=== PATIENT | female | born 1955 | race Caucasian/White ===

== ENCOUNTER → 2016-10-03 | Outpatient (CLI) | payer OTHER ==
--- NOTE | 2016-10-03 15:29 | RADIOLOGY REPORT (SQ) ---
EXAM DESCRIPTION: CHEST PA/LAT COMPLETED DATE/TIME: 10/03/2016 3:16 pm REASON FOR STUDY: HX OF PULMONARY SCARRING COMPARISON: 02/16/2015 EXAM PARAMETERS: NUMBER OF VIEWS: two views TECHNIQUE: Digital Frontal and Lateral radiographic views of the chest acquired. RADIATION DOSE: NA LIMITATIONS: none FINDINGS: LUNGS AND PLEURA: No opacities, masses or pneumothorax. No pleural effusion. MEDIASTINUM AND HILAR STRUCTURES: No masses or contour abnormalities. HEART AND VASCULAR STRUCTURES: Heart normal size. No evidence for failure. BONES: No acute findings. HARDWARE: None in the chest. OTHER: No other significant finding. IMPRESSION: NO SIGNIFICANT RADIOGRAPHIC FINDING IN THE CHEST. TECHNICAL DOCUMENTATION: JOB ID: [id number] [employer]- All Rights Reserved
== END ==
LOC: RAD 15:05
DX: J84.10 Pulmonary fibrosis, unspecified (principal)
CPT/HCPCS: 71020

== ENCOUNTER → 2017-07-09 | Outpatient (CLI) | payer OTHER ==
[2017-07-09 11:36] LABS: ABSOLUTE BASOPHILS # (AUTO) 0.1 10^3/uL (0.0-0.2); ABSOLUTE EOSINOPHILS # (AUTO) 0.2 10^3/uL (0.0-0.6); ABSOLUTE LYMPHOCYTES (AUTO) 1.8 10^3/uL (0.5-4.7); ABSOLUTE MONOCYTES (AUTO) 0.5 10^3/uL (0.1-1.4); ABSOLUTE NEUT (AUTO) 3.3 10^3/uL (1.7-8.2); BASOPHILS % (AUTO) 0.9 % (0-2); EOSINOPHILS % (AUTO) 3.6 % (0-6); HEMATOCRIT 42.6 % (36.0-47.0); HEMOGLOBIN 14.1 g/dL (12.0-15.5); LYMPHOCYTES % (AUTO) 30.7 % (13-45); MEAN CORPUSCULAR HEMOGLOBIN 26.3 pg (27.0-33.4); MEAN CORPUSCULAR HGB CONC 33.1 g/dL (32.0-36.0); MEAN CORPUSCULAR VOLUME 80 fl (80-97); MONOCYTES % (AUTO) 9.1 % (3-13); PLATELET COUNT 346 10^3/uL (150-450); RED BLOOD COUNT 5.35 10^6/uL (3.72-5.28); RED CELL DISTRIBUTION WIDTH 14.3 % (11.5-14.0); SEGMENTED NEUTROPHILS % (AUTO) 55.7 % (42-78); TOTAL CELLS COUNTED % (AUTO) 100 %; WHITE BLOOD COUNT 5.9 10^3/uL (4.0-10.5)
[2017-07-09 11:53] LABS: ALANINE AMINOTRANSFERASE 43 U/L (9-52); ALBUMIN 4.1 g/dL (3.5-5.0); ALKALINE PHOSPHATASE 74 U/L (38-126); AMYLASE 42 U/L (30-110); ANION GAP 9 (5-19); ASPARTATE AMINO TRANSFERASE 27 U/L (14-36); BILIRUBIN,DIRECT 0.1 mg/dL (0.0-0.4); BILIRUBIN,TOTAL 0.3 mg/dL (0.2-1.3); BLOOD UREA NITROGEN 13 mg/dL (7-20); CALCIUM 9.7 mg/dL (8.4-10.2); CARBON DIOXIDE 33 mmol/L (22-30); CHLORIDE 99 mmol/L (98-107); GLUCOSE 110 mg/dL (75-110); SODIUM 140.8 mmol/L (137-145)
[2017-07-10 08:41] LABS: THYROXINE (T4) 8.4 ug/dL (4.5-12.0)
[2017-07-10 10:33] LABS: FREE THYROXINE INDEX 2.3 (1.2-4.9)
== END ==
LOC: CCC 10:49
DX: I10 Essential (primary) hypertension (principal); E03.9 Hypothyroidism, unspecified; R19.7 Diarrhea, unspecified
CPT/HCPCS: 36415; 80053; 82150; 83036; 84436; 84443; 84479; 85025; 87493; 89055

== ENCOUNTER → 2018-12-23 | Outpatient (CLI) | payer OTHER ==
[2018-12-23 09:53] LABS: ABSOLUTE BASOPHILS # (AUTO) 0.1 10^3/uL (0.0-0.2); ABSOLUTE EOSINOPHILS # (AUTO) 0.2 10^3/uL (0.0-0.6); ABSOLUTE LYMPHOCYTES (AUTO) 1.8 10^3/uL (0.5-4.7); ABSOLUTE MONOCYTES (AUTO) 0.6 10^3/uL (0.1-1.4); ABSOLUTE NEUT (AUTO) 4.7 10^3/uL (1.7-8.2); BASOPHILS % (AUTO) 0.7 % (0-2); HEMATOCRIT 39.9 % (36.0-47.0); HEMOGLOBIN 13.4 g/dL (12.0-15.5); LYMPHOCYTES % (AUTO) 24.2 % (13-45); MEAN CORPUSCULAR HGB CONC 33.7 g/dL (32.0-36.0); MEAN CORPUSCULAR VOLUME 80 fl (80-97); MONOCYTES % (AUTO) 8.3 % (3-13); PLATELET COUNT 367 10^3/uL (150-450); RED BLOOD COUNT 4.97 10^6/uL (3.72-5.28); RED CELL DISTRIBUTION WIDTH 14.6 % (11.5-14.0); SEGMENTED NEUTROPHILS % (AUTO) 63.8 % (42-78); TOTAL CELLS COUNTED % (AUTO) 100 %; WHITE BLOOD COUNT 7.4 10^3/uL (4.0-10.5)
[2018-12-23 10:13] LABS: ALBUMIN 4.1 g/dL (3.5-5.0); ALKALINE PHOSPHATASE 74 U/L (38-126); ANION GAP 10 (5-19); ASPARTATE AMINO TRANSFERASE 22 U/L (14-36); BILIRUBIN,DIRECT 0.1 mg/dL (0.0-0.4); BILIRUBIN,TOTAL 0.3 mg/dL (0.2-1.3); BLOOD UREA NITROGEN 13 mg/dL (7-20); CALCIUM 9.7 mg/dL (8.4-10.2); CARBON DIOXIDE 28 mmol/L (22-30); CHLORIDE 102 mmol/L (98-107); CHOLESTEROL 173.47 mg/dL (0-200); CREATINE KINASE 62 U/L (30-135); GLUCOSE 121 mg/dL (75-110); TOTAL PROTEIN 7.4 g/dL (6.3-8.2); TRIGLYCERIDES 243 mg/dL (<150); URIC ACID 5.8 mg/dL (2.5-7.5)
[2018-12-23 10:22] LABS: DIRECT LDL 100 mg/dL (<100)
[2018-12-23 10:24] LABS: VLDL CHOLESTEROL 48.6 mg/dL (10-31)
[2018-12-23 10:27] LABS: FREE T4 (FREE THYROXINE) 1.47 ng/dL (0.78-2.19)
[2018-12-23 10:30] LABS: ERYTHROCYTE SEDIMENTATION RATE 28 mm/hr (0-30)
[2018-12-23 10:41] LABS: THYROID STIMULATING HORMONE 0.21 uIU/mL (0.47-4.68)
[2018-12-23 14:44] LABS: C DIFFICILE GDH NEGATIVE (NEGATIVE)
== END ==
LOC: CCC 08:57
DX: M79.18 Myalgia, other site (principal); R19.7 Diarrhea, unspecified
CPT/HCPCS: 36415; 80053; 80061; 82550; 83735; 84439; 84443; 84480; 84481; 84550; 85025; 85652; 86140; 87045; 87205; 87324; 87449

== ENCOUNTER 2019-04-01 14:41 | Emergency (ER) | payer OTHER ==
[2019-04-01] MEDS ORDERED: NORMAL SALINE 1000 ML 1,000 ML IV ONE (15:23)
--- NOTE | 2019-04-01 15:25 | ER Document Report ---
ED Cardiac - General Chief Complaint: Palpitations Stated Complaint: PALPITATIONS Time Seen by Provider: 04/01/19 15:10 Primary Care Provider: HARMONY REBOLLEDO MD [Primary Care Provider] - Follow up as needed Mode of Arrival: Ambulatory Information source: Patient Notes: Ms. Hughes is a 63-year-old female with history of SVT in the past. Last occurrence was 3 years ago. Patient does have hypothyroidism. Takes an ibuprofen for right knee pain takes an aspirin on on a daily basis. And is on blood pressure medicine hydro-Diuril. 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 She said it reoccurred a few hours later with and would not slowdown so therefore she drove herself to the emergency department without any incident. She denies chest pain shortness of breath nausea vomiting at this time. TRAVEL OUTSIDE OF THE [place] IN LAST 30 DAYS: No - HPI Patient complains to provider of: Palpitations, Other - Mild tightness during the first episode. Quality of pain: None, Intermittent, Other - Chest tightness was noted intermittently during the first episode of the SVT palpitations Chest pain radiation location: None Severity now: None Severity at worst: Moderate Pain level currently: 0 Chest pain precipitating factors: Patient unsure of any provocative factors that would have brought this palpitation problem on today. She denies any nausea vomiting dehydration chest pain or any missing of her medications. Positive cardiac history: Yes Exacerbated by: Denies - The only cardiac problem the patient is aware of is occasional SVT that is not very common. And also has a history of hypertension. Relieved by: Rest Similar symptoms previously: Yes - Related Data Allergies/Adverse Reactions: No Known Allergies Allergy (Verified 05/21/13 11:13) Past Medical History - Social History Smoking Status: Never Smoker Frequency of alcohol use: None Drug Abuse: None Occupation: [employer] Off[employer]arer Lives with: Alone Family History: None - Past Medical History Cardiac Medical History: Reports: Hx Hypercholesterolemia, Hx Hypertension Pulmonary Medical History: Denies: Hx Asthma, Hx COPD, Hx Tuberculosis Endocrine Medical History: Reports: Hx Hypothyroidism Psychiatric Medical History: Reports: Hx Depression - refuses medications Past Surgical History: Reports: Hx Hysterectomy, Hx Kidney (Renal Surgery) - renal tumor - Immunizations Immunizations up to date: Yes Hx Diphtheria, Pertussis, Tetanus Vaccination: No Hx Pneumococcal Vaccination: 05/15/09 Review of Systems - Review of Systems Cardiovascular: See HPI, Palpitations Physical Exam - Vital signs Vitals: Resp BP Pulse Ox 20 137/69 H 96 04/01/19 15:02 04/01/19 15:02 04/01/19 15:02 Signs are stable at this time. Patient had spontaneous control of her SVT prior to my arrival to the ED to see the patient. Patient took deep breaths and was breathing out through a straw and spontaneously resolved SVT. Currently patient is in normal sinus rhythm. Interpretation: Normal - General General appearance: Appears well, Alert - HEENT Head: Normocephalic, Atraumatic Eyes: Normal Pupils: PERRL - Respiratory Respiratory status: No respiratory distress Chest status: Nontender Breath sounds: Normal Chest palpation: Normal - Cardiovascular Rhythm: Regular Heart sounds: Normal auscultation Murmur: No - Abdominal Inspection: Normal Distension: No distension Bowel sounds: Normal Tenderness: Nontender Organomegaly: No organomegaly - Back Back: Normal, Nontender - Extremities General upper extremity: Normal inspection, Nontender, Normal color, Normal ROM, Normal temperature General lower extremity: Normal inspection, Nontender, Normal color, Normal ROM, Normal temperature, Normal weight bearing. No: Giovanna's sign - Neurological Neuro grossly intact: Yes Cognition: Normal Orientation: AAOx4 Jovanni Coma Scale Eye Opening: Spontaneous Jovanni Coma Scale Verbal: Oriented Jovanni Coma Scale Motor: Obeys Commands Jovanni Coma Scale Total: 15 Speech: Normal Motor strength normal: LUE, RUE, LLE, RLE Sensory: Normal - Psychological Associated symptoms: Normal affect, Normal mood - Skin Skin Temperature: Warm Skin Moisture: Dry Skin Color: Normal Course - Re-evaluation Re-evalutation: 04/01/19 17:31 Patient has not shown any signs of shortness of breath or chest pain. - Vital Signs Vital signs: Temp Pulse Resp BP Pulse Ox 98.3 F 16 115/91 H 97 04/01/19 16:01 04/01/19 16:01 04/01/19 16:01 04/01/19 16:01 - Laboratory Result Diagrams: 04/01/19 15:01 04/01/19 15:01 Laboratory results interpreted by me: 04/01/19 04/01/19 04/01/19 15:01 15:01 15:01 WBC 11.2 H MCH 26.5 L RDW 15.0 H Est GFR (MDRD) Non-Af 56 L Glucose 130 H TSH 0.27 L - Diagnostic Test Radiology reviewed: Image reviewed - There is been no return of any SVT at this time. Patient has remained in normal sinus rhythm., Reports reviewed - EKG Interpretation by Me Additional EKG results interpreted by me: 04/01/19 15:31 Initial EKG shows a supraventricular tachycardia with a ventricular rate of 166 with repolarization abnormality probably right leg related this EKG was done at 1440 7 repeat EKG done at 1505 shows a sinus tachycardia at [address] depression lateral leads Discharge - Discharge Clinical Impression: Supraventricular tachycardia determined by electrocardiography Condition: Stable Disposition: HOME, SELF-CARE Instructions: Palpitations (Irregular or Rapid Heartrate) ([facility]) Additional Instructions: Recommended patient discuss her thyroid replacement medication dosing. Today's labs show TSH that is lower than the normal range which means that there could be some room for improving and decreasing her Synthroid dose at this time. May be a factor as to why she went into supraventricular tachycardia today. Also states that she drinks 2 caffeine coffee cups a day. I recommend that she cut back to 1 cup a day if she can. Referrals: HARMONY REBOLLEDO MD [Primary Care Provider] - Follow up as needed
[2019-04-01 15:33] LABS: ABSOLUTE BASOPHILS # (AUTO) 0.1 10^3/uL (0.0-0.2); ABSOLUTE EOSINOPHILS # (AUTO) 0.2 10^3/uL (0.0-0.6); ABSOLUTE LYMPHOCYTES (AUTO) 3.5 10^3/uL (0.5-4.7); ABSOLUTE MONOCYTES (AUTO) 0.9 10^3/uL (0.1-1.4); ABSOLUTE NEUT (AUTO) 6.5 10^3/uL (1.7-8.2); BASOPHILS % (AUTO) 0.5 % (0-2); EOSINOPHILS % (AUTO) 2.1 % (0-6); HEMATOCRIT 42.4 % (36.0-47.0); HEMOGLOBIN 13.9 g/dL (12.0-15.5); LYMPHOCYTES % (AUTO) 31.5 % (13-45); MEAN CORPUSCULAR HEMOGLOBIN 26.5 pg (27.0-33.4); MEAN CORPUSCULAR HGB CONC 32.9 g/dL (32.0-36.0); MEAN CORPUSCULAR VOLUME 81 fl (80-97); MONOCYTES % (AUTO) 8.1 % (3-13); PLATELET COUNT 414 10^3/uL (150-450); RED BLOOD COUNT 5.26 10^6/uL (3.72-5.28); SEGMENTED NEUTROPHILS % (AUTO) 57.8 % (42-78); TOTAL CELLS COUNTED % (AUTO) 100 %; WHITE BLOOD COUNT 11.2 10^3/uL (4.0-10.5)
--- NOTE | 2019-04-01 15:44 | RADIOLOGY REPORT (SQ) ---
EXAM DESCRIPTION: CHEST SINGLE VIEW COMPLETED DATE/TIME: 04/01/2019 3:26 pm REASON FOR STUDY: bed 18 elevated hr COMPARISON: 10/03/2016 EXAM PARAMETERS: NUMBER OF VIEWS: One view. TECHNIQUE: Single frontal radiographic view of the chest acquired. RADIATION DOSE: NA LIMITATIONS: None. FINDINGS: LUNGS AND PLEURA: No opacities, masses or pneumothorax. No pleural effusion. MEDIASTINUM AND HILAR STRUCTURES: No masses. Contour normal. HEART AND VASCULAR STRUCTURES: Heart normal in size. Normal vasculature. BONES: No acute findings. HARDWARE: None in the chest. OTHER: No other significant finding. IMPRESSION: NO ACUTE RADIOGRAPHIC FINDING IN THE CHEST. TECHNICAL DOCUMENTATION: JOB ID: [id number] [employer]- All Rights Reserved Reading location - IP/workstation name: [email or web address]
[2019-04-01 15:52] LABS: ALBUMIN 4.3 g/dL (3.5-5.0); ALKALINE PHOSPHATASE 88 U/L (38-126); ANION GAP 12 (5-19); ASPARTATE AMINO TRANSFERASE 21 U/L (14-36); BILIRUBIN,DIRECT 0.1 mg/dL (0.0-0.4); BILIRUBIN,TOTAL 0.3 mg/dL (0.2-1.3); BLOOD UREA NITROGEN 16 mg/dL (7-20); CARBON DIOXIDE 27 mmol/L (22-30); CHLORIDE 99 mmol/L (98-107); CREATINE KINASE 92 U/L (30-135); GLUCOSE 130 mg/dL (75-110); POTASSIUM 3.6 mmol/L (3.6-5.0); TOTAL PROTEIN 7.9 g/dL (6.3-8.2)
[2019-04-01 16:02] LABS: CREATINE KINASE MB 1.87 ng/mL (<4.55)
[2019-04-01 16:05] LABS: TROPONIN I < 0.012 ng/mL
[2019-04-01 18:30] VITALS: BP 128/73
[2019-04-01 22:59] LABS: URINE AMPHETAMINES SCREEN NEGATIVE; URINE BARBITURATES SCREEN NEGATIVE; URINE BENZODIAZEPINES SCREEN NEGATIVE; URINE COCAINE SCREEN NEGATIVE; URINE MARIJUANA (THC) SCREEN NEGATIVE; URINE METHADONE SCREEN NEGATIVE; URINE PHENCYCLIDINE SCREEN NEGATIVE
--- NOTE | 2019-04-02 15:58 | EKG REPORT ---
SEVERITY:- ABNORMAL ECG - SUPRAVENTRICULAR TACHYCARDIA REPOLARIZATION ABNORMALITY, PROB RATE RELATED : Confirmed by: Everette Ku 02-Apr-2019 15:57:34
--- NOTE | 2019-04-02 15:58 | EKG REPORT ---
SEVERITY:- OTHERWISE NORMAL ECG - SINUS TACHYCARDIA MINIMAL ST DEPRESSION, LATERAL LEADS : Confirmed by: Everette Ku 02-Apr-2019 15:57:26
== END 2019-04-01 18:08 | disposition home or self-care (01) ==
LOC: ER 14:41
DX: I47.1 Supraventricular tachycardia (principal); E03.9 Hypothyroidism, unspecified; M25.561 Pain in right knee; E78.00 Pure hypercholesterolemia, unspecified; I10 Essential (primary) hypertension; Z79.82 Long term (current) use of aspirin; Z90.710 Acquired absence of both cervix and uterus
CPT/HCPCS: 36415; 82553; 82550; 83735; 84443; 85025; 80053; 84484; 80307; 83880; 71045; J7030; 93005; 93010

== ENCOUNTER → 2020-03-29 | Outpatient (CLI) | payer OTHER ==
[2020-03-29 10:28] LABS: ABSOLUTE BASOPHILS # (AUTO) 0.1 10^3/uL (0.0-0.2); ABSOLUTE EOSINOPHILS # (AUTO) 0.3 10^3/uL (0.0-0.6); ABSOLUTE LYMPHOCYTES (AUTO) 1.9 10^3/uL (0.5-4.7); ABSOLUTE MONOCYTES (AUTO) 0.5 10^3/uL (0.1-1.4); ABSOLUTE NEUT (AUTO) 4.6 10^3/uL (1.7-8.2); EOSINOPHILS % (AUTO) 3.6 % (0-6); HEMATOCRIT 39.9 % (36.0-47.0); HEMOGLOBIN 13.2 g/dL (12.0-15.5); LYMPHOCYTES % (AUTO) 25.4 % (13-45); MEAN CORPUSCULAR HEMOGLOBIN 26.7 pg (27.0-33.4); MEAN CORPUSCULAR HGB CONC 33.1 g/dL (32.0-36.0); MEAN CORPUSCULAR VOLUME 81 fl (80-97); MONOCYTES % (AUTO) 6.8 % (3-13); PLATELET COUNT 410 10^3/uL (150-450); RED BLOOD COUNT 4.95 10^6/uL (3.72-5.28); RED CELL DISTRIBUTION WIDTH 14.4 % (11.5-14.0); SEGMENTED NEUTROPHILS % (AUTO) 63.2 % (42-78); TOTAL CELLS COUNTED % (AUTO) 100 %; WHITE BLOOD COUNT 7.4 10^3/uL (4.0-10.5)
[2020-03-29 10:59] LABS: ALBUMIN 4.2 g/dL (3.5-5.0); ALKALINE PHOSPHATASE 80 U/L (38-126); ANION GAP 7 (5-19); ASPARTATE AMINO TRANSFERASE 24 U/L (14-36); BILIRUBIN,DIRECT 0.1 mg/dL (0.0-0.4); BILIRUBIN,TOTAL 0.4 mg/dL (0.2-1.3); BLOOD UREA NITROGEN 14 mg/dL (7-20); C-REACTIVE PROTEIN 17.3 mg/L (<10.0); CALCIUM 10.3 mg/dL (8.4-10.2); CARBON DIOXIDE 33 mmol/L (22-30); CHLORIDE 97 mmol/L (98-107); CHOLESTEROL 208.63 mg/dL (0-200); CREATINE KINASE 58 U/L (30-135); GLUCOSE 135 mg/dL (75-110); POTASSIUM 3.7 mmol/L (3.6-5.0); TOTAL PROTEIN 7.9 g/dL (6.3-8.2); TRIGLYCERIDES 160 mg/dL (<150); URIC ACID 6.3 mg/dL (2.5-7.5)
[2020-03-29 11:07] LABS: ERYTHROCYTE SEDIMENTATION RATE 26 mm/hr (0-30)
[2020-03-29 11:08] LABS: DIRECT LDL 115 mg/dL (<100)
[2020-03-29 11:11] LABS: FREE T3 3.74 pg/mL (2.77-5.27); FREE T4 (FREE THYROXINE) 1.94 ng/dL (0.78-2.19)
[2020-03-29 11:24] LABS: THYROID STIMULATING HORMONE 0.06 uIU/mL (0.47-4.68)
== END ==
LOC: CCC 09:11
PROVIDERS: ATTEND Family Medicine
DX: M79.18 Myalgia, other site (principal); R19.7 Diarrhea, unspecified
CPT/HCPCS: 36415; 80053; 80061; 82550; 83735; 84439; 84443; 84481; 84550; 85025; 85652; 86140

== ENCOUNTER → 2020-04-21 | Outpatient (CLI) | payer OTHER ==
--- NOTE | 2020-04-21 15:48 | RADIOLOGY REPORT (SQ) ---
EXAM DESCRIPTION: KNEE BILAT AP UPRIGHT IMAGES COMPLETED DATE/TIME: 04/21/2020 3:36 pm REASON FOR STUDY: (M25.862)OTHER SPECIFIED JOINT DISORDERS, LEFT KNEE;(M25.861)OTHER SPECIFIE M25.86 2 OTHER SPECIFIED JOINT DISORDERS, LEFT KNEE M25.861 OTHER SPECIFIED JOINT DISORDERS, RIGHT KNEE COMPARISON: None. NUMBER OF VIEWS: Single View TECHNIQUE: AP standing bilateral knees. LIMITATIONS: None. FINDINGS: MINERALIZATION: Normal. RIGHT KNEE BONES: No acute fracture. No worrisome bone lesions. MEDIAL COMPARTMENT: Osteophytosis with moderate to severe joint space loss. No chondrocalcinosis. LATERAL COMPARTMENT: Osteophytosis with no significant joint space loss. No chondrocalcinosis. PATELLOFEMORAL COMPARTMENT: Limited evaluation. LEFT KNEE BONES: No acute fracture. No worrisome bone lesions. MEDIAL COMPARTMENT: Osteophytosis with moderate joint space loss. No chondrocalcinosis. LATERAL COMPARTMENT: Tiny osteophytes. No significant joint space loss. No chondrocalcinosis. PATELLOFEMORAL COMPARTMENT: Limited evaluation. IMPRESSION: No evidence of acute bony abnormality in the single frontal projection. Osteoarthritis with moderate to severe joint space loss, greatest within the right medial compartment . TECHNICAL DOCUMENTATION: JOB ID: [id number] [employer]- All Rights Reserved Reading location - IP/workstation name: [email or web address]
== END ==
LOC: RAD 15:05
DX: M17.0 Bilateral primary osteoarthritis of knee (principal); M25.862 Other specified joint disorders, left knee; M25.861 Other specified joint disorders, right knee
CPT/HCPCS: 73565